=== PATIENT | male | born 1965 | race Caucasian/White ===

== ENCOUNTER 2017-10-02 12:50 | Emergency (ER) | payer BC ==
[2017-10-02 13:01] VITALS: BP 113/74
--- NOTE | 2017-10-02 13:25 | UC ---
Ear Complaint HPI - HPI Summary HPI Summary: This is Madison tao, documenting for attending Vero Birch MD. This patient is a 52 year old M presenting to [facility] accompanied by his with a chief complaint of right ear pain and pressure today. Reports post nasal drip. Pain unchanged by Alieve. Denies drainage from ears, dental pain, fever, and chills. Pain is 2/10 in severity, upon triage. Patient reports recent swimming at the beach. No active medications. I, Dr. Birch, personally performed the services described in this documentation as scribed in my presence and it is both accurate and complete. - History of Current Complaint Chief Complaint: UCEar Stated Complaint: EAR ACHE Time Seen by Provider: 10/02/17 13:07 Hx Obtained From: Patient Onset/Duration: Lasting Hours Pain Intensity: 2 Pain Scale Used: 0-10 Numeric Alleviating Factors: Nothing - Allergies/Home Medications Allergies/Adverse Reactions: Allergies Allergy/AdvReac Type Severity Reaction Status Date / Time No Known Allergies Allergy Verified 10/02/17 13:01 PMH/Surg Hx/FS Hx/Imm Hx Previously Healthy: Yes - Surgical History Surgical History: Yes Surgery Procedure, Year, and Place: appy - Family History Known Family History: Positive: Other - non contributory Negative: Respiratory Disease - Social History Occupation: Employed Full-time Lives: With Family Alcohol Use: Occasionally Substance Use Type: None Smoking Status (MU): Never Smoked Tobacco Review of Systems Constitutional: Negative ENT: Negative - dental pain, ear drainage, Ear Ache, Other - post nasal drip All Other Systems Reviewed And Are Negative: Yes Physical Exam - Summary Physical Exam Summary: Vital Signs Reviewed: Yes A+Ox3, no distress Eyes: Conjunctiva Clear, LEMUEL. EOM intact and full ENT: Hearing grossly normal Right TM fluid, erythema, buldging left TM scant fluid, turbiantes boggy, mmoist, uvula midline, no exudate, no erythema Neck: Positive: Supple Respiratory: Positive: No respiratory distress, No accessory muscle use + CTA throughout no w/r Cardiovascular: RRR nl s1, s2 no m/r CBT <2 sec abd soft + BS nt/nd no guarding, no distension Musculoskeletal Exam: LIANG x 4 without difficulty Strength Intact, ROM Intact Neurological: Positive: Alert, + sensation throughout Psychological: Positive: Normal Response To Family Skin: Positive: no rash, no ecchymosis Triage Information Reviewed: Yes Vital Signs: Initial Vital Signs Temp 98.2 F 10/02/17 12:58 Pulse 89 10/02/17 12:58 Resp 17 10/02/17 12:58 BP 113/74 10/02/17 12:58 Pulse Ox 100 10/02/17 12:58 Ear Complaint Course/Dx - Course Course Of Treatment: Pt presents with right ear pain. Pt with erythema, buldging right TM turbinates boggy. VSS. Will start abx. flonase. decongestant. secretion precaution. motrin/apap return - Differential Dx/Diagnosis Provider Diagnoses: right OM Discharge - Sign-Out/Discharge Documenting (check all that apply): Patient Departure All imaging exams completed and their final reports reviewed: No Studies - Discharge Plan Condition: Stable Disposition: HOME Prescriptions: Amoxicillin PO (*) [Amoxicillin 875 MG (*)] 875 mg PO BID #20 tab Fluticasone NASAL SPRAY 50MCG* [Flonase NASAL SPRAY 50MCG*] 2 spray BOTH NARES DAILY #1 btl Patient Education Materials: Ear Infection (ED) Referrals: No Primary Care Phys,NOPCP [Primary Care Provider] - Additional Instructions: - Stay well hydrated. Drink plenty of non-alcoholic, non-caffinated beverages. - Alternate ibuprofen (Advil, Motrin) 600mg and Tylenol every 3 hours for pain or fever. Take with food. Do NOT take for more than 4-5 days. - These infections are spread by secretions - do NOT share eating or drinking utensils - clean items you share with other people such as cell phones, computer mouse, TV remote, computer tablets,etc. Once you have been antibiotics for 2 days, change your toothbrush and your pillowcase. - okay to take over the counter decongestant - Claritin D, Slime D, Zyrtec D - it is recommended you take before boarding airplane tomorrow - use nasal spray as prescribed - take antibiotics as prescribed - they will likely cause diarrhea - contact your doctor or return with questions or concerns - Billing Disposition and Condition Condition: STABLE Disposition: Home - Attestation Statements Document Initiated by Scribe: Yes Documenting Scribe: Madison John, Provider For Whom Scribe is Documenting (Include Credential): Vero Birch MD Scribe Attestation: I, Madison John,, scribed for Vero Birch MD on 10/04/17 at 1941. Scribe Documentation Reviewed: Yes Provider Attestation: The documentation as recorded by the scribe, Madison John, accurately reflects the service I personally performed and the decisions made by me, Vero Birch MD
== END 2017-10-02 13:39 | disposition home or self-care (01) ==
LOC: UCEAST 12:50
DX: H66.91 Otitis media, unspecified, right ear (principal)
CPT/HCPCS: 99202; G0463